=== PATIENT | female | born 1995 | race Caucasian/White ===

== ENCOUNTER → 2024-10-20 | Outpatient (CLI) | payer OTHER ==
[2024-10-20 18:17] LABS: VITAMIN D, 25-HYDROXY 57.7 ng/mL (30-100)
== END | disposition home or self-care (01) ==
LOC: LAB 17:33
PROVIDERS: ATTEND Nurse Practitioner Women's Health
DX: R53.83 Other fatigue (principal); E55.9 Vitamin D deficiency, unspecified; F39 Unspecified mood [affective] disorder

== ENCOUNTER → 2025-05-10 | Outpatient (CLI) | payer OTHER ==
[2025-05-10 10:28] LABS: SGPT/ALT 11 U/L (5-49)
== END | disposition home or self-care (01) ==
LOC: LAB 09:34
PROVIDERS: ATTEND Dermatology
DX: L70.0 Acne vulgaris (principal); L53.8 Other specified erythematous conditions; R20.8 Other disturbances of skin sensation